=== PATIENT | female | born 1985 | race Caucasian/White ===

== ENCOUNTER 2017-11-02 11:00 | Inpatient (IN) | payer OTHER ==
[~2017-11-02] VITALS: Ht 165.1 cm; Wt 3.2 kg
[2017-11-02] MEDS ORDERED: ATABEX DHA 200200 MG PO (12:15)
[2017-11-02] MEDS ORDERED: AMPICILLIN TRI500 MG PO (12:15)
[2017-11-09] MEDS ORDERED: PERCOCET 5-3251 EACH PO (08:25)
== END 2017-11-09 10:26 | DRG 766 ==
LOC: O/R 11-06 05:28 → LDR 11-06 07:00 → OB/GYN 11-06 11:00 → LDR 11-06 11:00 → OB/GYN 11-06 11:29
PROVIDERS: Specialist
PROC: 4A1HXCZ Monitoring of Products of Conception, Cardiac Rate, External Approach (ICD-10-PCS; 2017-11-06)
PROC: 10D00Z1 Extraction of Products of Conception, Low, Open Approach (ICD-10-PCS; principal; 2017-11-06 07:00)
DX: O34.211 Maternal care for low transverse scar from previous cesarean delivery (principal); O75.82 Onset (spontaneous) of labor after 37 completed weeks of gestation but before 39 completed weeks gestation, with delivery by (planned) cesarean section; Z3A.38 38 weeks gestation of pregnancy; Z37.0 Single live birth; Z22.330 Carrier of Group B streptococcus